=== PATIENT | male | born 1945 | race Caucasian/White ===

== ENCOUNTER → 2017-03-14 | Outpatient (CLI) | payer OTHER, MEDICARE ==
[~2017-03-14] MED LIST: CLOP1TAB54 PO; CYAN500T PO; ENAL1TAB33 PO; ERGO1CAP35 PO; FLUT0.0529; IBUP-1050 PO; INSU1INJ15; MISCCAP80; SIMV20TA2 PO
--- NOTE | 2017-03-14 10:11 | DIAGNOSTIC IMAGING REPORT ---
TWO VIEW CHEST CLINICAL HISTORY: Dyspnea. FINDINGS: PA and lateral chest radiographs are compared to study dated 01/26/2014. Correlation is made with chest CT dated 10/14/2007. The cardiomediastinal silhouette is unremarkable. Chronic interstitial thickening and mild emphysema are similar to previous. There is no airspace consolidation or pleural effusion. Biapical scarring is observed. There is no pneumothorax. The bony thorax appears intact. IMPRESSION: No active disease in the chest. Electronically signed by: Estevan Roberson M.D. 03/14/2017 10:09 AM Dictated Date/Time: 03/14/2017 10:07 AM
== END | disposition home or self-care (01) ==
LOC: C.RAD1850 09:58
PROVIDERS: ATTEND Physician Assistant
DX: R06.02 Shortness of breath (principal)

== ENCOUNTER → 2017-04-11 | Outpatient (CLI) | payer OTHER, MEDICARE ==
[2017-04-11 12:11] LABS: URINE APPEARANCE CLEAR (CLEAR); URINE BILIRUBIN NEG (NEG); URINE COLOR YELLOW; URINE NITRITE NEG (NEG); URINE SPECIFIC GRAVITY 1.022 (1.000-1.030); UROBILINOGEN NEG (NEG)
[2017-04-11 12:14] LABS: BASO % 0.6 %; BASO ABS # 0.03 K/uL (0-0.2); COMPLETE YES; HEMATOCRIT 45.8 % (42-52); IG% 0.4 %; LYMPH % 42.6 %; LYMPH ABS # 2.18 K/uL (1.2-3.4); MEAN CELL VOLUME 92.3 fL (80-100); MEAN CORPUSCULAR HEMOGLOBIN 30.2 pg (25-34); MEAN CORPUSCULAR HGB CONC 32.8 g/dl (32-36); MONO % 7.4 %; PLATELET COUNT 245 K/uL (130-400); RED BLOOD COUNT 4.96 M/uL (4.7-6.1); WHITE BLOOD COUNT 5.12 K/uL (4.8-10.8)
[2017-04-11 12:17] LABS: MANUAL MICROSCOPIC REQUIRED? NO; REVIEW REQ? NO
[2017-04-11 12:26] LABS: CALCIUM 9.2 mg/dl (8.5-10.1)
[2017-04-11 12:32] LABS: ALT/SGPT 25 U/L (12-78); BLOOD UREA NITROGEN 28 mg/dl (7-18); BUN/CREATININE RATIO 16.6 (10-20); CARBON DIOXIDE 24 mmol/L (21-32); CHLORIDE 108 mmol/L (98-107); CHOLESTEROL 167 mg/dl (0-200); GLUCOSE 109 mg/dl (70-99); POTASSIUM 4.2 mmol/L (3.5-5.1); SODIUM 140 mmol/L (136-145); TRIGLYCERIDES 91 mg/dl (0-150); VERY LOW DENSITY LIPOPROT CALC 18 mg/dl
[2017-04-11 12:36] LABS: ALB/GLOB RATIO 1.1 (0.9-2); ALKALINE PHOSPHATASE 98 U/L (45-117); AST/SGOT 23 U/L (15-37); CHOLESTEROL/HDL RATIO 3.5; HDL CHOLESTEROL 48 mg/dl; LDL CHOLESTEROL CALCULATED 101 mg/dl; PHOSPHORUS 2.7 mg/dl (2.5-4.9); PROSTATE SPECIFIC ANTIGEN 0.934 ng/ml (0.000-4.000)
[2017-04-11 12:40] LABS: ESTIMATED AVERAGE GLUCOSE 154 mg/dl; HA1C FLAG Normal (Normal)
== END | disposition home or self-care (01) ==
LOC: C.LAB1850 10:08
PROVIDERS: ATTEND Internal Medicine
DX: E11.9 Type 2 diabetes mellitus without complications (principal); E55.9 Vitamin D deficiency, unspecified; N18.3 Chronic kidney disease, stage 3 (moderate); D64.9 Anemia, unspecified; Z12.5 Encounter for screening for malignant neoplasm of prostate; N25.81 Secondary hyperparathyroidism of renal origin

== ENCOUNTER → 2017-10-15 | Outpatient (CLI) | payer OTHER, MEDICARE ==
[2017-10-15 11:05] LABS: ALT/SGPT 21 U/L (12-78); AST/SGOT 14 U/L (15-37); BLOOD UREA NITROGEN 26 mg/dl (7-18); BUN/CREATININE RATIO 14.8 (10-20); CALCIUM 9.1 mg/dl (8.5-10.1); CARBON DIOXIDE 22 mmol/L (21-32); CHLORIDE 105 mmol/L (98-107); CREATININE 1.76 mg/dl (0.60-1.40); GLUCOSE 141 mg/dl (70-99); SODIUM 136 mmol/L (136-145)
[2017-10-15 11:08] LABS: ALB/GLOB RATIO 1.1 (0.9-2); ALKALINE PHOSPHATASE 117 U/L (45-117); ESTIMATED AVERAGE GLUCOSE 157 mg/dl; HA1C FLAG Normal (Normal)
== END | disposition home or self-care (01) ==
LOC: C.LAB1850 09:31
PROVIDERS: ATTEND Internal Medicine
DX: E11.22 Type 2 diabetes mellitus with diabetic chronic kidney disease (principal); N25.81 Secondary hyperparathyroidism of renal origin

== ENCOUNTER → 2017-10-24 | Outpatient (CLI) | payer OTHER, MEDICARE ==
--- NOTE | 2017-10-24 11:27 | DIAGNOSTIC IMAGING REPORT ---
CHEST 2 VIEWS ROUTINE HISTORY: 72 years-old Male R53.83 [id number] COMPARISON: Chest radiographs 03/14/2017, chest CT 10/14/2007, chest radiograph 01/26/2014 TECHNIQUE: PA and lateral views of the chest FINDINGS: Ill-defined nodular opacity measuring approximately 11 mm projects over the left lung base on the frontal view adjacent to the anterior aspect of the left fifth rib which appears unchanged dating back to study dated 01/26/2014 which suggests nipple shadow. There is no pneumothorax, pleural effusion, focal airspace consolidation or overt pulmonary edema. Unchanged mild biapical pleural-parenchymal scarring/pleural thickening. Bones of the chest appear grossly intact. IMPRESSION: 1. No acute cardiopulmonary process. 2. Probable nipple shadow of the left lung base. The above report was generated using voice recognition software. It may contain grammatical, syntax or spelling errors. Electronically signed by: dEison Mendoza M.D. 10/24/2017 11:25 AM Dictated Date/Time: 10/24/2017 11:22 AM
[2017-10-24 12:25] LABS: BASO % 0.3 %; BASO ABS # 0.02 K/uL (0-0.2); COMPLETE YES; EOS % 1.4 %; HEMATOCRIT 46.7 % (42-52); IG% 0.4 %; LYMPH % 41.4 %; LYMPH ABS # 3.04 K/uL (1.2-3.4); MEAN CORPUSCULAR HEMOGLOBIN 31.4 pg (25-34); MEAN CORPUSCULAR HGB CONC 34.5 g/dl (32-36); MEAN PLATELET VOLUME 9.7 fL (7.4-10.4); MONO % 6.4 %; NEUT % 50.1 %; PLATELET COUNT 228 K/uL (130-400); RED BLOOD COUNT 5.13 M/uL (4.7-6.1); WHITE BLOOD COUNT 7.34 K/uL (4.8-10.8)
[2017-10-24 12:42] LABS: URINE APPEARANCE CLEAR (CLEAR); URINE BILIRUBIN NEG (NEG); URINE COLOR YELLOW; URINE EPITHELIAL CELL AUTO >30 /lpf (0-5); URINE NITRITE NEG (NEG); URINE SPECIFIC GRAVITY 1.022 (1.000-1.030); UROBILINOGEN NEG (NEG)
[2017-10-24 12:44] LABS: MANUAL MICROSCOPIC REQUIRED? NO; REVIEW REQ? YES
[2017-10-24 13:01] LABS: ALT/SGPT 20 U/L (12-78); BLOOD UREA NITROGEN 22 mg/dl (7-18); BUN/CREATININE RATIO 13.5 (10-20); CALCIUM 9.6 mg/dl (8.5-10.1); CARBON DIOXIDE 25 mmol/L (21-32); CHLORIDE 104 mmol/L (98-107); CREATININE 1.61 mg/dl (0.60-1.40); GLUCOSE 135 mg/dl (70-99); POTASSIUM 3.6 mmol/L (3.5-5.1); SODIUM 137 mmol/L (136-145)
[2017-10-24 13:16] LABS: ALB/GLOB RATIO 1.1 (0.9-2); ALKALINE PHOSPHATASE 135 U/L (45-117); AST/SGOT 13 U/L (15-37)
== END | disposition home or self-care (01) ==
LOC: C.RAD1850 11:01
PROVIDERS: ATTEND Internal Medicine
DX: R53.83 Other fatigue (principal)

== ENCOUNTER → 2018-06-28 | Day surgery (SDC) | payer OTHER, MEDICARE ==
[2018-06-18 08:14] VITALS: BMI 22.0
[~2018-06-28] VITALS: Ht 175.3 cm; Wt 69.5 kg
[~2018-06-28] MED LIST changes: +ASPCH81X PO; +CALC0.2510 PO; +CHOL1000 PO; -CLOP1TAB54 PO; -CYAN500T PO; -ENAL1TAB33 PO; -ERGO1CAP35 PO; -FLUT0.0529; +FLUT50SP45; -IBUP-1050 PO; -INSU1INJ15; +LIDOCAINE HCL 2% 2 ML VIAL (20MG/ML) ONE; +LISI-789 PO; +LVMI SC; +MIDAZOLAM HCL 1 MG/ML 2ML VIAL ONE; -MISCCAP80; +ONDANSETRON INJ 2 MG/ML 2 ML VIAL ONE; +PROPOFOL IV EMULSION 10 MG/ML 20 ML VIAL ONE
[2018-06-28 08:05] VITALS: Ht 175.3 cm; Wt 69.5 kg
--- NOTE | 2018-06-28 08:21 | Endo History and Physical ---
History & Physical Date of Service: Jun 28, 2018. Chief Complaint: SCREENING Referring Physician: [facility] History of Present Illness 73 yo CM who presents for colonoscopy secondary to history of colon polyps. Past Surgical History Hx Cardiac Surgery: Yes (RT CAROTID ENDARTERECTOMY) Hx Internal Defibrillator: No Hx Pacemaker: No Hx Abdominal Surgery: No Hx of Implantable Prosthesis: No Hx Post-Op Nausea and Vomiting: No Hx Cancer Surgery: No Hx Thoracic Surgery: No Hx Orthopedic: No Hx Urinary Tract Surgery: Yes (LITHOTRIPSY) Family History None Social History Smoking Status: Former Smoker Hx Substance Use: No Hx Alcohol Use: Yes (VERY RARELY) Allergies Coded Allergies: Iodine (Verified Allergy, Severe, DIFFICULTY BREATHING/HEAVY CHEST WITH IVP DYE, 06/28/18) Current Medications Reported Home Medications Medications Dose Route/Sig Max Daily Dose Days Date Category Vitamin D3 (Cholecalciferol) 1,000 Unit Tab 1 Tab PO QPM 06/18/18 Reported Zocor (Simvastatin) 20 Mg Tab 20 Mg PO QPM 06/18/18 Reported Zestril (Lisinopril) 2.5 Mg Tab 1 Tab PO QAM 06/18/18 Reported Levemir (Insulin Detemir) 100 Units/Ml Inj 9 Unit SC HS 06/18/18 Reported Allergy Nasal [place] 24 Ho (Fluticasone Propionate (Nasal)) 50 Mcg/Act Spr 1 [place] NA DIRECTED PRN 06/18/18 Reported Aspirin Chewable (Aspirin) 81 Mg Chew 81 Mg PO QAM 06/18/18 Reported Rocaltrol Cap (Calcitriol) 0.25 Mcg Cap 0.25 Mcg PO 3XWK 06/18/18 Reported Vital Signs Weight (Kilograms): 69.55 Height (Feet): 5 Height (Inches): 9 Date Time Temp Pulse Resp B/P (MAP) Pulse Ox O2 Delivery O2 Flow Rate FiO2 06/28/18 08:14 36.0 72 18 128/73 (91) 99 Room Air Physical Exam General Appearance: WD/WN, no apparent distress Respiratory/Chest: Auscultation: breath sounds normal Cardiovascular: Heart Auscultation: RRR Abdomen: Bowel Sounds: normal Inspection & Palpation: soft, non-distended, no tenderness, guarding & rebound Assessment and Plan Assessment: 73 yo CM who presents for colonoscopy secondary to history of colon polyps. Plan: Proceed with colonoscopy.
--- NOTE | 2018-06-28 09:23 | Discharge Instructions ---
Endoscopy Patient Instructions Date / Procedure(s) Performed Jun 28, 2018. Colonoscopy Allergy Information Coded Allergies: Iodine (Verified Allergy, Severe, DIFFICULTY BREATHING/HEAVY CHEST WITH IVP DYE, 06/28/18) Discharge Date / Findings Jun 28, 2018. Colon polyps Internal hemorrhoids Medication Instructions OK to resume all medications today as prescribed Reported Home Medications Medications Dose Route/Sig Max Daily Dose Days Date Category Vitamin D3 (Cholecalciferol) 1,000 Unit Tab 1 Tab PO QPM 06/18/18 Reported Zocor (Simvastatin) 20 Mg Tab 20 Mg PO QPM 06/18/18 Reported Zestril (Lisinopril) 2.5 Mg Tab 1 Tab PO QAM 06/18/18 Reported Levemir (Insulin Detemir) 100 Units/Ml Inj 9 Unit SC HS 06/18/18 Reported Allergy Nasal [place] 24 Ho (Fluticasone Propionate (Nasal)) 50 Mcg/Act Spr 1 [place] NA DIRECTED PRN 06/18/18 Reported Aspirin Chewable (Aspirin) 81 Mg Chew 81 Mg PO QAM 06/18/18 Reported Rocaltrol Cap (Calcitriol) 0.25 Mcg Cap 0.25 Mcg PO 3XWK 06/18/18 Reported Provider Instructions Activity Restrictions - No exercising or heavy lifting for 24 hours. - Do not drink alcohol the day of the procedure. - Do not drive a car or operate machinery until the day after the procedure. - Do not make any important decisions or sign important papers in 24 hours after the procedure. Following Day: - Return to full activity which may include returning to work/school. Diet Start your diet with liquids and light foods (jello, soup, juice, toast). Then eat your usual diet if not nauseated. Treatment For Common After Affects For mild abdominal pain, bloating, or excessive gas: - Rest - Eat lightly - Lie on right side Follow-Up Information Follow-up with [facility] as scheduled Anesthesia Information What You Should Know You have had a procedure that required some medicine to reduce anxiety and discomfort. This treatment is called moderate sedation. After receiving the treatment, you may be sleepy, but you will be able to breathe on your own. The effects of the treatment may last for several hours. Follow these instructions along with Activity/Diet recommendations noted above: * Do NOT do anything where dizziness or clumsiness would be dangerous. * Rest quietly at home today, then you can be up and about tomorrow. * Have a responsible person stay with you the rest of today. * You may have had an I.V. today. If so, you may take the dressing off later today. Recommendations Call your doctor if: * Trouble breathing * Continuous vomiting for more than 24 hours * Temperature above 101 degrees * Severe abdominal pain or bloating * Pain not relieved by pain medicine ordered * There is increased drainage or redness from any incision * A large amount of rectal bleeding greater than 2-3 tablespoons. (If you had a polyp/s removed or have hemorrhoids, a small amount of blood - from the rectum is to be expected.) * You have any unanswered questions or concerns. IN THE EVENT OF A SERIOUS EMERGENCY, GO TO THE NEAREST EMERGENCY ROOM Your discharge instructions were prepared by provider León Hernández. Patient Instructions Signature Page Brooks Ascencio Patient (or Guardian) Signature/Date: I have read and understand the instructions given to me by my caregivers. Caregiver/RN/Doctor Signature/Date: The above-named patient and/or guardian has received patient instructions on this date. + Original Patient Signature Page (only) stays with chart. Please make copy for patient.
[2018-06-28 09:30] VITALS: BP 115/61; PULSE 69; O2SAT 96
--- NOTE | 2018-06-28 10:31 | Anesthesiology Progress Note ---
Anesthesia Post Op Note Date & Time Jun 28, 2018 at 10:31 Vital Signs Pain Intensity: 0 Vital Signs Past 12 Hours Date Time Temp Pulse Resp B/P (MAP) Pulse Ox O2 Delivery O2 Flow Rate FiO2 06/28/18 09:30 69 20 115/61 (79) 96 Room Air 06/28/18 09:22 72 20 115/66 (82) 99 Room Air 06/28/18 09:07 36.8 77 16 124/85 (98) 99 Room Air 06/28/18 08:14 36.0 72 18 128/73 (91) 99 Room Air Notes Mental Status: alert / awake / arousable, participated in evaluation Pt Amnestic to Procedure: Yes Nausea / Vomiting: adequately controlled Pain: adequately controlled Airway Patency, RR, SpO2: stable & adequate BP & HR: stable & adequate Hydration State: stable & adequate Anesthetic Complications: no major complications apparent
--- NOTE | 2018-06-28 10:54 | GI REPORT ---
Patient Name: Brooks Ascencio Procedure Date: 06/28/2018 8:17 AM Date of : 1945 Admit Type: Outpatient Age: 73 Gender: Male Attending MD: León Hernández DO Procedure: Colonoscopy Providers: León Hernández DO Referring MD: Nae Torrez Indications: High risk colon cancer surveillance: Personal history of colonic polyps Medicines: Monitored Anesthesia Care Complications: No immediate complications. Estimated Blood Loss: Estimated blood loss: none. Procedure: Pre-Anesthesia Assessment: - Prior to the procedure, a History and Physical was performed, and patient medications and allergies were reviewed. The patient's tolerance of previous anesthesia was also reviewed. The risks and benefits of the procedure and the sedation options and risks were discussed with the patient. All questions were answered, and informed consent was obtained. Prior Anticoagulants: The patient has taken aspirin, last dose was 3 days prior to procedure. ASA Grade Assessment: III - A patient with severe systemic disease. After reviewing the risks and benefits, the patient was deemed in satisfactory condition to undergo the procedure. After I obtained informed consent, the scope was passed under direct vision. Throughout the procedure, the patient's blood pressure, pulse, and oxygen saturations were monitored continuously. The scope was introduced through the anus and advanced to the terminal ileum. The colonoscopy was performed without difficulty. The patient tolerated the procedure well. The quality of the bowel preparation was good. The terminal ileum, ileocecal valve, appendiceal orifice, and rectum were photographed. Findings: The perianal and digital rectal examinations were normal. Two sessile polyps were found in the ascending colon. The polyps were 5 to 8 mm in size. These polyps were removed with a hot snare. Resection and retrieval were complete. Non-bleeding internal hemorrhoids were found during retroflexion. The hemorrhoids were small. Impression: - Two 5 to 8 mm polyps in the ascending colon, removed with a hot snare. Resected and retrieved. - Non-bleeding internal hemorrhoids. Recommendation: - Resume previous diet. - Continue present medications. - Repeat colonoscopy for surveillance based on pathology results. - Return to primary care physician as previously scheduled. León Hernández DO 06/28/2018 9:10:19 AM This report has been signed electronically. Note Initiated On: 06/28/2018 8:17 AM Number of Addenda: 0 I attest to the content of the Intraoperative Record and orders documented therein, exceptions below {[id number]}
== END | disposition home or self-care (01) ==
LOC: C.GI 07:37
PROVIDERS: ATTEND Internal Medicine
DX: Z12.11 Encounter for screening for malignant neoplasm of colon (principal); I10 Essential (primary) hypertension; E78.5 Hyperlipidemia, unspecified; M19.90 Unspecified osteoarthritis, unspecified site; E10.9 Type 1 diabetes mellitus without complications; N18.9 Chronic kidney disease, unspecified; Z79.82 Long term (current) use of aspirin; Z87.891 Personal history of nicotine dependence